=== PATIENT | male | born 1990 | race African-American/Black ===

== ENCOUNTER 2016-08-22 23:36 | Emergency (ER) | payer OTHER ==
[2016-08-22 23:46] VITALS: BMI 26.2
--- NOTE | 2016-08-23 00:29 | PDOC ---
History of Present Illness - General History Source: Patient Exam Limitations: No Limitations - History of Present Illness Initial Comments: 08/23/16 01:02 The patient is a 25 year old male with no significant past medical history who presents to the ED complaining of nausea and watery diarrhea that began this evening. No abdominal pain, vomiting, or diarrhea. No blood per rectum. No urinary complaints. No fever or chills. No sick contacts, dietary changes or recent travel. <Daniela Briggs - Last Filed: 08/23/16 01:02> <Deja Calderon - Last Filed: 08/23/16 23:28> - General Chief Complaint: Diarrhea Stated Complaint: STOMACH VIRUS Time Seen by Provider: 08/23/16 00:29 Past History <Daniela Briggs - Last Filed: 08/23/16 01:02> - Psycho/Social/Smoking Cessation Hx Anxiety: No Suicidal Ideation: No Smoking History: Never smoked Hx Alcohol Use: No Substance Use Type: None <Deja Calderon - Last Filed: 08/23/16 23:28> - Past Medical History Allergies/Adverse Reactions: Allergies Allergy/AdvReac Type Severity Reaction Status Date / Time No Known Allergies Allergy Verified 08/22/16 23:44 Home Medications: Ambulatory Orders NK [No Known Home Medication] 08/22/16 Review of Systems - Review of Systems Able to Perform ROS?: Yes Comments:: 08/23/16 01:04 GENERAL/CONSTITUTIONAL: No fever or chills. No weakness. HEAD, EYES, EARS, NOSE AND THROAT: No change in vision. No ear pain or discharge. No sore throat CARDIOVASCULAR: No chest pain or shortness of breath. RESPIRATORY: No cough, wheezing, or hemoptysis. GASTROINTESTINAL: Nausea, Diarrhea. No abdominal pain, vomiting, constipation. GENITOURINARY: No dysuria, frequency, or change in urination. MUSCULOSKELETAL: No joint or muscle swelling or pain. No neck or back pain. SKIN: No rash NEUROLOGIC: No headache, vertigo, loss of consciousness, or change in strength/ sensation. ENDOCRINE: No increased thirst. No abnormal weight change. HEMATOLOGIC/LYMPHATIC: No anemia, easy bleeding, or history of blood clots. ALLERGIC/IMMUNOLOGIC: No hives or skin allergy. <Daniela Briggs - Last Filed: 08/23/16 01:02> *Physical Exam - Vital Signs Last Vital Signs Temp Pulse Resp BP Pulse Ox 98.1 F 89 16 118/72 99 08/22/16 23:45 08/22/16 23:45 08/22/16 23:45 08/22/16 23:45 08/22/16 23:45 - Physical Exam Comments: 08/23/16 01:07 GENERAL: Awake, alert, and fully oriented, in no acute distress HEAD: No signs of trauma EYES: PERRLA, EOMI, sclera anicteric, conjunctiva clear ENT: Auricles normal inspection, hearing grossly normal, nares patent, oropharynx clear without exudates. Moist mucosa NECK: Normal ROM, supple, no lymphadenopathy, JVD, or masses LUNGS: Breath sounds equal, clear to auscultation bilaterally. No wheezes, and no crackles HEART: Regular rate and rhythm, normal S1 and S2, no murmurs, rubs or gallops ABDOMEN: Soft, nontender, normoactive bowel sounds. No guarding, no rebound. No masses EXTREMITIES: Normal range of motion, no edema. No clubbing or cyanosis. No cords, erythema, or tenderness NEUROLOGICAL: Cranial nerves II through XII grossly intact. Normal speech, normal gait SKIN: Warm, Dry, normal turgor, no rashes or lesions noted. <Daniela Briggs - Last Filed: 08/23/16 01:02> - Vital Signs Last Vital Signs Temp Pulse Resp BP Pulse Ox 98.1 F 89 16 118/72 99 08/22/16 23:45 08/22/16 23:45 08/22/16 23:45 08/22/16 23:45 08/22/16 23:45 <Deja Calderon - Last Filed: 08/23/16 23:28> ED Treatment Course - LABORATORY CBC & Chemistry Diagram: 08/23/16 00:57 08/23/16 00:57 <Daniela Briggs - Last Filed: 08/23/16 01:02> - LABORATORY CBC & Chemistry Diagram: 08/23/16 00:57 08/23/16 00:57 <Deja Calderon - Last Filed: 08/23/16 23:28> Medical Decision Making - Medical Decision Making 08/23/16 23:27 Pt comes with viral gastroenteritis. Exam is normal. He was hydrated. He has an elevated WBC count. However, his abd is benign and he has no flank pain. No cough and no fever. He will be sent home. Hydration and BRAT diet. Follow with PMD. <Deja Calderon - Last Filed: 08/23/16 23:28> *DC/Admit/Observation/Transfer - Attestations Scribe Attestion: 08/23/16 01:07 Documentation prepared by Daniela Briggs, acting as medical office asst for Deja Calderon MD. <Daniela Briggs - Last Filed: 08/23/16 01:02> - Discharge Dispostion Admit: No <Deja Calderon - Last Filed: 08/23/16 23:28> Diagnosis at time of Disposition: Viral gastroenteritis - Referrals Referrals: Ronald Short MD [Primary Care Provider] - - Patient Instructions Printed Discharge Instructions: DI for Viral Gastroenteritis -- Adult
[2016-08-23] MEDS ORDERED: SODIUM CHLORIDE 0.9% 1000 ML INFUS.BAG IV ONE (00:30)
[2016-08-23] MEDS ORDERED: FAMOTIDINE 20 MG/50 ML IVPB 50 ML IVPB ONE ×2 (01:02→01:21)
[2016-08-23 01:13] LABS: BASOPHIL 0.2 % (0-2.0); EOSINOPHIL 6.1 % (0-4.5); MCH 29.4 pg (25.7-33.7); MCHC 34.7 g/dl (32.0-35.9); MEAN CELL VOLUME 84.6 fl (80-96); MEAN PLT VOLUME 8.6 fl (7.5-11.1); NEUTROPHILS 83.3 % (42.8-82.8); PLATELET COUNT 283 K/MM3 (134-434); RDW 12.8 % (11.9-15.9); WHITE BLOOD COUNT 18.9 K/mm3 (4.0-10.0)
[2016-08-23 01:32] LABS: ALBUMIN 4.5 g/dl (3.4-5.0); AMYLASE 96 U/L (25-115); ANION GAP 5 (8-16); CALCIUM 9.5 mg/dL (8.5-10.1); CO2 29 mmol/L (21-32); COCKROFT - GAULT 100.21; CREATININE 1.3 mg/dL (0.7-1.3); GLUCOSE,RANDOM 109 mg/dL (74-106); SGPT/ALT 46 U/L (12-78)
[2016-08-23 01:34] LABS: ALK PHOS 78 U/L (45-117); BILIRUBIN,TOTAL 1.2 mg/dL (0.2-1.0); TOT PROT 8.4 g/dl (6.4-8.2)
[2016-08-23 01:36] LABS: SGOT/AST 29 U/L (15-37)
[2016-08-23 02:34] VITALS: BP 120/76; PULSE 86; TEMP 98
== END 2016-08-23 02:42 | disposition home or self-care (01) ==
LOC: JER 23:36
PROC: 3E033GC Introduction of Other Therapeutic Substance into Peripheral Vein, Percutaneous Approach (ICD-10-PCS; principal; 2016-08-22)
DX: A08.4 Viral intestinal infection, unspecified (principal); B97.89 Other viral agents as the cause of diseases classified elsewhere
CPT/HCPCS: 36415; 80053; 82150; 83690; 85025; 96365; 99282-25

== ENCOUNTER 2017-04-17 00:14 | Emergency (ER) | payer OTHER ==
[2017-04-17] MEDS ORDERED: TETRACAINE 0.5% OPHTH SOLN 2 ML BOTTLE OD ONE (01:26)
[2017-04-17] MEDS ORDERED: ERYTHROMYCIN 0.5% OPHTHALMIC OINTMENT 3.5 GM TUBE OD ONE (01:33)
[2017-04-17] MEDS ORDERED: TETRACAINE 0.5% OPHTH SOLN 2 ML BOTTLE ONE (01:33)
[2017-04-17] MEDS ORDERED: FLUORESCEIN NA 1 EA STRIP ONE (01:33)
[2017-04-17] MEDS ORDERED: ERYTHROMYCIN 0.5% OPHTHALMIC OINTMENT 3.5 GM TUBE ONE (01:34)
[2017-04-17] MEDS ORDERED: TETANUS AND DIPHTHERIA TOXOID 0.5 ML DISP.SYRIN IM ONE (01:43)
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
[2017-04-17 01:59] VITALS: BP 132/85; PULSE 98; TEMP 98.5; BMI 27.3
== END 2017-04-17 02:13 | disposition home or self-care (01) ==
LOC: JER 00:14
DX: S05.01XA Injury of conjunctiva and corneal abrasion without foreign body, right eye, initial encounter (principal); Y04.2XXA Assault by strike against or bumped into by another person, initial encounter; Y93.89 Activity, other specified; Y92.019 Unspecified place in single-family (private) house as the place of occurrence of the external cause; Y99.8 Other external cause status; Y07.02 Wife, perpetrator of maltreatment and neglect
CPT/HCPCS: 99281-25

== ENCOUNTER 2017-04-17 17:56 | Emergency (ER) | payer OTHER ==
[2017-04-17 18:01] VITALS: BP 135/78; PULSE 75; TEMP 98.6; BMI 28.5
[2017-04-17] MEDS ORDERED: AZITHROMYCIN 1 GM PACKET PO ONE (18:44)
--- NOTE | 2017-04-17 18:51 | PDOC ---
History of Present Illness - General History Source: Patient Exam Limitations: No Limitations - History of Present Illness Initial Comments: 04/17/17 18:46 Patient states girlfriend told him she was tested for an unknown STD and was currently undergoing treatment for some "infection". Patient is uncertain as to cause or type. Is uncertain as to medication she is currently taking. Denies swelling, lesions, penile drainage or dysuria but requests to have testing including HIV completed. Patient understands will need to treat for gonorrhea and chlamydia prophylactically as test results will not be returned for 3-7 days. Timing/Duration: unsure Severity: mild <Casandra Torres - Last Filed: 04/17/17 19:52> <Prerna Ríos - Last Filed: 04/17/17 20:08> - General Chief Complaint: Penile Drainage Stated Complaint: EVALUATION Time Seen by Provider: 04/17/17 18:15 Past History - Travel Traveled outside of the country in the last 30 days: No Close contact w/someone who was outside of country & ill: No - Past Medical History COPD: No - Immunization History Immunization Up to Date: No - Suicide/Smoking/Psychosocial Hx Smoking History: Never smoked Have you smoked in the past 12 months: No Information on smoking cessation initiated: No Hx Alcohol Use: No Drug/Substance Use Hx: No Substance Use Type: None <Casandra Torres - Last Filed: 04/17/17 19:52> <Prerna Ríos - Last Filed: 04/17/17 20:08> - Past Medical History Allergies/Adverse Reactions: Allergies Allergy/AdvReac Type Severity Reaction Status Date / Time No Known Allergies Allergy Verified 04/17/17 19:29 Home Medications: Ambulatory Orders Erythromycin 0.5% Eye Ointment [Erythromycin 0.5% Eye Ointment -] 1 applic OD BID 4 Days #1 tube 04/17/17 Review of Systems - Review of Systems Able to Perform ROS?: Yes Is the patient limited Arabic proficient: Yes Constitutional: Yes: Symptoms Reported, See HPI HEENTM: No: Symptoms Reported Respiratory: Yes: See HPI. No: Symptoms reported Cardiac (ROS): No: Symptoms Reported : Yes: Symptoms Reported, See HPI. No: Dysuria, Discharge, Frequency, Testicular Mass, Testicular Swelling, Lesions, Testicular Pain Integumentary: Yes: See HPI. No: Symptoms Reported All Other Systems: Reviewed and Negative <Casandra Torres - Last Filed: 04/17/17 19:52> *Physical Exam - Vital Signs Last Vital Signs Temp Pulse Resp BP Pulse Ox 98.6 F 75 18 135/78 100 04/17/17 17:57 04/17/17 17:57 04/17/17 17:57 04/17/17 17:57 04/17/17 17:57 - Physical Exam General Appearance: Yes: Nourished, Appropriately Dressed. No: Apparent Distress HEENT: positive: KRANTHI, Normal ENT Inspection, TMs Normal, Pharynx Normal Neck: positive: Supple. negative: Lymphadenopathy (R), Lymphadenopathy (L) Respiratory/Chest: positive: Lungs Clear, Normal Breath Sounds Gastrointestinal/Abdominal: positive: Soft. negative: Normal Bowel Sounds Extremity: positive: Normal Capillary Refill, Normal Inspection, Normal Range of Motion, Tender, Pelvis Stable Integumentary: positive: Normal Color, Dry, Warm Neurologic: positive: director pharmacovigilance II-XII NML intact, Fully Oriented, Alert, Normal Mood/ Affect, Normal Response, Motor Strength 5/5 <Casandra Torres - Last Filed: 04/17/17 19:52> - Vital Signs Last Vital Signs Temp Pulse Resp BP Pulse Ox 98.6 F 75 18 135/78 100 04/17/17 17:57 04/17/17 17:57 04/17/17 17:57 04/17/17 17:57 04/17/17 17:57 <Prerna Ríos - Last Filed: 04/17/17 20:08> ED Treatment Course - Medications Given in the ED: ED Medications Discontinued Medications Generic Name Dose Route Start Last Admin Trade Name Jamesq PRN Reason Stop Dose Admin Azithromycin 1 gm 04/17/17 18:44 04/17/17 19:03 Zithromax - PO 04/17/17 18:45 1 gm ONCE ONE Administration Ceftriaxone Sodium 250 mg 04/17/17 18:44 04/17/17 19:03 Rocephin - IM 04/17/17 18:45 250 mg ONCE ONE Administration <Prerna Ríos - Last Filed: 04/17/17 20:08> *DC/Admit/Observation/Transfer - Discharge Dispostion Admit: No <Casandra Torres - Last Filed: 04/17/17 19:52> <Prerna Ríos - Last Filed: 04/17/17 20:08> Diagnosis at time of Disposition: Possible exposure to STD - Discharge Dispostion Disposition: HOME Condition at time of disposition: Stable - Patient Instructions Printed Discharge Instructions: Facts About Sexually Transmitted Infections Additional Instructions: You been treated today with azithromycin 1 g by mouth for treatment of chlamydia You have been treated with Rocephin 250 mg injection for treatment of gonorrhea Your HIV testing today was NEGATIVE. Your RPR testing will be resulted in 2-3 days Your gonorrhea and chlamydia testing will not be resulted for an additional week Call Pamela for test results + [phone] Always use condoms with the partners Followup with PMD in one week for reevaluation and retesting. - Post Discharge Activity Forms/Work/School Notes: Back to Work
[2017-04-17] MEDS ORDERED: AZITHROMYCIN 250 MG TABLET ONE (18:57)
== END 2017-04-17 20:12 | disposition home or self-care (01) ==
LOC: JERFT 17:56
DX: Z11.3 Encounter for screening for infections with a predominantly sexual mode of transmission (principal)
CPT/HCPCS: 36415; 86593; 87389; 87491; 87591; 96372; 99281-25

== ENCOUNTER 2018-05-20 10:14 | Emergency (ER) | payer SELFPAY ==
[2018-05-20 10:25] VITALS: BP 108/55; PULSE 80; TEMP 98.1; BMI 28.0
--- NOTE | 2018-05-20 10:47 | PDOC ---
History of Present Illness - General Chief Complaint: Wound Stated Complaint: SWELLING ON NECK Time Seen by Provider: 05/20/18 10:30 History Source: Patient - History of Present Illness Timing/Duration: reports: other Past History - Past Medical History Allergies/Adverse Reactions: Allergies Allergy/AdvReac Type Severity Reaction Status Date / Time No Known Allergies Allergy Verified 05/20/18 10:21 Home Medications: Ambulatory Orders NK [No Known Home Medication] 05/20/18 COPD: No - Immunization History Immunization Up to Date: No - Suicide/Smoking/Psychosocial Hx Smoking History: Unknown if ever smoked Have you smoked in the past 12 months: No Hx Alcohol Use: No Drug/Substance Use Hx: No Substance Use Type: None Review of Systems - Review of Systems Constitutional: No: Fever *Physical Exam - Vital Signs Last Vital Signs Temp Pulse Resp BP Pulse Ox 98.1 F 80 18 108/55 L 99 05/20/18 10:22 05/20/18 10:22 05/20/18 10:22 05/20/18 10:22 05/20/18 10:22 - Physical Exam General Appearance: Yes: Appropriately Dressed. No: Apparent Distress HEENT: positive: Normal Voice, Other (~3x2 cm soft, mobile, NT mass to mid occiput, no erythema or fluctuance) Neck: positive: Supple Respiratory/Chest: negative: Respiratory Distress Integumentary: positive: Dry, Warm Neurologic: positive: Fully Oriented, Alert, Normal Mood/Affect Moderate Sedation - Procedure Monitoring Vital Signs: Procedure Monitoring Vital Signs Temperature 98.1 F 05/20/18 10:22 Pulse Rate 80 05/20/18 10:22 Respiratory Rate 18 05/20/18 10:22 Blood Pressure 108/55 L 05/20/18 10:22 O2 Sat by Pulse Oximetry (%) 99 05/20/18 10:22 Medical Decision Making - Medical Decision Making 05/20/18 10:43 27-year-old male, history of lipoma to occiput that was confirmed on ultrasound last week at [facility] per pt, here requesting follow-up. States staff at [facility] told him that they would call him to arrange f/u but that they never did so here. No recent change. Patient well-appearing and stable with ~3x2, soft mobile, NT mass to occipital area, c/w lipoma. No intervention needed in ED. Dc with plastic surgery referral for eval and management *DC/Admit/Observation/Transfer Diagnosis at time of Disposition: Lipoma Qualifiers: Lipoma location: head Qualified Code(s): D17.0 - Benign lipomatous neoplasm of skin and subcutaneous tissue of head, face and neck - Discharge Dispostion Disposition: HOME Condition at time of disposition: Good - Referrals Referrals: Ramez Garay MD [Staff Physician] - Kenrick Galvan MD [Staff Physician] - - Patient Instructions Printed Discharge Instructions: Lipoma Additional Instructions: You have a lipoma which is fatty tissue, usually benign. Please follow-up with Dr. Galvan of plastic surgery for evaluation and management. You were also given follow-up with Dr. Garay for your primary care needs - Post Discharge Activity
== END 2018-05-20 10:42 | disposition home or self-care (01) ==
LOC: JERFT 10:14
DX: D17.0 Benign lipomatous neoplasm of skin and subcutaneous tissue of head, face and neck (principal)
CPT/HCPCS: 99281-25

== ENCOUNTER 2019-06-10 20:58 | Emergency (ER) | payer OTHER ==
[2019-06-10 21:04] VITALS: BP 126/71; PULSE 67; TEMP 98.2; BMI 28.3
[2019-06-10] MEDS ORDERED: AZITHROMYCIN 250 MG TABLET PO ONE (21:25)
[2019-06-10] MEDS ORDERED: AZITHROMYCIN 250 MG TABLET ONE (21:45)
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
== END 2019-06-10 22:25 | disposition home or self-care (01) ==
LOC: JERFT 20:58
DX: Z20.2 Contact with and (suspected) exposure to infections with a predominantly sexual mode of transmission (principal); Z72.51 High risk heterosexual behavior
CPT/HCPCS: 36415; 86593; 87389; 87491; 87591; 96372; 99283-25

== ENCOUNTER 2022-09-14 23:22 | Emergency (ER) | payer OTHER ==
[2022-09-14 23:26] VITALS: BP 106/70; PULSE 79; RESP 18; TEMP 98.2; BMI 28.0
[2022-09-14] MEDS ORDERED: FAMOTIDINE 20 MG TABLET PO ONE (23:53)
[2022-09-15] MEDS ORDERED: FAMOTIDINE 20 MG TABLET ONE (00:05)
[2022-09-15 00:18] LABS: BASO % 0.5 % (0-2.0); EOS % 0.3 % (0-4.5); HEMATOCRIT 45.1 % (35.4-49); HEMOGLOBIN 15.6 GM/dL (11.7-16.9); LYMPH % 16.9 % (8-40); MCH 29.3 pg (25.7-33.7); MCHC 34.6 g/dl (32.0-35.9); MEAN CELL VOLUME 84.7 fl (80-96); MEAN PLT VOLUME 8.5 fl (7.5-11.1); MONO % 5.5 % (3.8-10.2); NEUT % 76.8 % (42.8-82.8); PLATELET COUNT 197 10^3/uL (134-434); RBC 5.32 M/mm3 (4.00-5.60); WHITE BLOOD COUNT 13.8 K/mm3 (4.0-10.0)
[2022-09-15 00:40] LABS: POTASSIUM 4.3 mmol/L (3.5-5.1)
[2022-09-15 00:41] LABS: CALCIUM 9.3 mg/dL (8.5-10.1)
[2022-09-15 00:42] LABS: BLOOD UREA NITROGEN 14.4 mg/dL (7-18)
[2022-09-15 00:45] LABS: CREATININE 1.1 mg/dL (0.55-1.3)
[2022-09-15 00:46] LABS: BILIRUBIN,TOTAL 0.6 mg/dL (0.2-1); TOT PROT 7.4 g/dl (6.4-8.2)
== END 2022-09-15 01:11 | disposition home or self-care (01) ==
LOC: JER 23:22
DX: R11.10 Vomiting, unspecified (principal); R06.6 Hiccough
CPT/HCPCS: 36415; 71045-TC-FY; 80053; 85025; 99284-25